=== PATIENT | male | born 1955 | race Two or more races ===

== ENCOUNTER 2019-04-03 13:01 | Observation (INO) | payer OTHER ==
--- NOTE | 2019-04-03 13:50 | ER Document Report ---
ED General - General Chief Complaint: Chest Pressure Stated Complaint: WEAKNESS Time Seen by Provider: 04/03/19 13:29 TRAVEL OUTSIDE OF THE [place] IN LAST 30 DAYS: No - HPI Notes: Patient presents with intermittent chest pressure dizziness and nausea with intermittent vomiting since Wednesday of this past week. He also has generalized weakness when these spells occur. No known medical problems he works outdoors landscaping for living. He has also been having more shortness of breath than normal with exertion. Not taking medications on a daily basis. chairman ceo was used - Related Data Allergies/Adverse Reactions: No Known Allergies Allergy (Verified 04/03/19 13:02) Past Medical History - Social History Smoking Status: Never Smoker Family History: Reviewed & Not Pertinent Review of Systems - Review of Systems Constitutional: No symptoms reported EENT: No symptoms reported Cardiovascular: See HPI Respiratory: No symptoms reported Gastrointestinal: Nausea, Vomiting Genitourinary: No symptoms reported Male Genitourinary: No symptoms reported Musculoskeletal: No symptoms reported Skin: No symptoms reported Hematologic/Lymphatic: No symptoms reported Neurological/Psychological: See HPI Physical Exam - Vital signs Vitals: Temp Pulse Resp BP Pulse Ox 98.5 F 74 13 138/83 H 98 04/03/19 13:05 04/03/19 13:05 04/03/19 13:05 04/03/19 13:05 04/03/19 13:05 - General General appearance: Appears well, Alert - HEENT Head: Normocephalic Eyes: Normal - Respiratory Respiratory status: No respiratory distress Chest status: Nontender Breath sounds: Normal - Cardiovascular Rhythm: Regular Heart sounds: Normal auscultation Murmur: No - Abdominal Inspection: Normal Distension: No distension Bowel sounds: Normal Tenderness: Nontender - Extremities General upper extremity: Normal inspection, Normal strength General lower extremity: Normal inspection, Normal strength Course - Re-evaluation Re-evalutation: 04/03/19 15:17 will be admitted for chest pain rule out - Vital Signs Vital signs: Temp Pulse Resp BP Pulse Ox 98.5 F 74 16 122/80 98 04/03/19 13:05 04/03/19 13:05 04/03/19 16:01 04/03/19 16:01 04/03/19 16:01 - Laboratory Result Diagrams: 04/03/19 13:50 04/03/19 13:50 Laboratory results interpreted by me: 04/03/19 13:50 Lymph % (Auto) 45.1 H Eos % (Auto) 11.5 H Absolute Eos (auto) 0.7 H Seg Neutrophils % 32.7 L - EKG Interpretation by Me EKG shows normal: Sinus rhythm Rate: Normal Rhythm: NSR Discharge - Discharge Clinical Impression: Chest pain Disposition: ADMITTED OBSERVATION Admitting Provider: Kelli (Hospitalist) Unit Admitted: Telemetry
--- NOTE | 2019-04-03 14:19 | RADIOLOGY REPORT (SQ) ---
EXAM DESCRIPTION: CHEST SINGLE VIEW COMPLETED DATE/TIME: 04/03/2019 2:11 pm REASON FOR STUDY: chest pain COMPARISON: None. EXAM PARAMETERS: NUMBER OF VIEWS: One view. TECHNIQUE: Single frontal radiographic view of the chest acquired. RADIATION DOSE: NA LIMITATIONS: None. FINDINGS: LUNGS AND PLEURA: No opacities, masses or pneumothorax. No pleural effusion. MEDIASTINUM AND HILAR STRUCTURES: No masses. Contour normal. HEART AND VASCULAR STRUCTURES: Cardiomegaly. BONES: No acute findings. Callused fracture deformities of the left ribs. HARDWARE: None in the chest. OTHER: No other significant finding. IMPRESSION: Cardiomegaly without acute abnormality of the lungs in AP projection. TECHNICAL DOCUMENTATION: JOB ID: [id number] [employer]- All Rights Reserved Reading location - IP/workstation name: [email or web address]
[2019-04-03 14:23] LABS: ABSOLUTE EOSINOPHILS # (AUTO) 0.7 10^3/uL (0.0-0.6); ABSOLUTE LYMPHOCYTES (AUTO) 2.8 10^3/uL (0.5-4.7); ABSOLUTE MONOCYTES (AUTO) 0.6 10^3/uL (0.1-1.4); BASOPHILS % (AUTO) 0.6 % (0-2); EOSINOPHILS % (AUTO) 11.5 % (0-6); HEMOGLOBIN 14.5 g/dL (13.5-17.0); LYMPHOCYTES % (AUTO) 45.1 % (13-45); MEAN CORPUSCULAR HEMOGLOBIN 31.1 pg (27.0-33.4); MEAN CORPUSCULAR HGB CONC 33.6 g/dL (32.0-36.0); MEAN CORPUSCULAR VOLUME 92 fl (80-97); MONOCYTES % (AUTO) 10.1 % (3-13); PLATELET COUNT 201 10^3/uL (150-450); RED BLOOD COUNT 4.65 10^6/uL (4.35-5.55); RED CELL DISTRIBUTION WIDTH 12.9 % (11.5-14.0); SEGMENTED NEUTROPHILS % (AUTO) 32.7 % (42-78); TOTAL CELLS COUNTED % (AUTO) 100 %; WHITE BLOOD COUNT 6.2 10^3/uL (4.0-10.5)
[2019-04-03 14:53] LABS: NT PRO BNP 20 pg/mL (5-900)
[2019-04-03 14:58] LABS: TROPONIN I < 0.012 ng/mL
[2019-04-03 15:05] LABS: ALBUMIN 4.2 g/dL (3.5-5.0); ALKALINE PHOSPHATASE 64 U/L (38-126); ANION GAP 9 (5-19); ASPARTATE AMINO TRANSFERASE 31 U/L (17-59); BILIRUBIN,DIRECT 0.2 mg/dL (0.0-0.4); BILIRUBIN,TOTAL 0.4 mg/dL (0.2-1.3); BLOOD UREA NITROGEN 19 mg/dL (7-20); CALCIUM 9.4 mg/dL (8.4-10.2); CARBON DIOXIDE 27 mmol/L (22-30); CHLORIDE 102 mmol/L (98-107); GLUCOSE 103 mg/dL (75-110); TOTAL PROTEIN 7.8 g/dL (6.3-8.2)
[2019-04-03] MEDS ORDERED: ACETAMINOPHEN 325 MG TABLET PO PRN (16:10)
[2019-04-03] MEDS ORDERED: TEMAZEPAM 15 MG CAPSULE PO PRN (16:10)
[2019-04-03] MEDS ORDERED: ONDANSETRON 4 MG TAB.RAPDIS PO PRN (16:10)
--- NOTE | 2019-04-03 16:10 | PDOC H&P ---
History of Present Illness Admission Date/PCP: 04/03/19 15:26 History of Present Illness: AAMIR ALDRICH is a 63 year old male originally from [facility] [employer] by profession and who does not have significant medical problem presented with chief complaint chest pain described as pressure- like localized epigastric region nonradiating and about 5 out of 10 on pain scale. Patient has associated shortness of breath on exertion and nausea vomiting and dizziness. Patient denies any fever, chills, palpitation or diaphoresis. Patient endorses nausea vomiting but no diarrhea. No urinary complaints. His blood works are unremarkable. Chest x-ray reported as cardiomegaly without other pulmonary abnormalities. Social History Smoking Status: Never Smoker Frequency of Alcohol Use: None Hx Recreational Drug Use: No - Advance Directive Resuscitation Status: Full Code Family History Parental Family History Reviewed: Yes Children Family History Reviewed: Yes Sibling(s) Family History Reviewed.: Yes Medication/Allergy Allergies/Adverse Reactions: No Known Allergies Allergy (Verified 04/03/19 13:02) Review of Systems Constitutional: ABSENT: chills, fever(s), headache(s), weight gain, weight loss Eyes: ABSENT: visual disturbances Ears: ABSENT: hearing changes Cardiovascular: PRESENT: chest pain Respiratory: PRESENT: dyspnea Gastrointestinal: PRESENT: nausea, vomiting Genitourinary: ABSENT: dysuria, hematuria Musculoskeletal: ABSENT: joint swelling Integumentary: ABSENT: rash, wounds Neurological: ABSENT: abnormal gait, abnormal speech, confusion, dizziness, focal weakness, syncope Psychiatric: ABSENT: anxiety, depression, homidical ideation, suicidal ideation Endocrine: ABSENT: cold intolerance, heat intolerance, polydipsia, polyuria Hematologic/Lymphatic: ABSENT: easy bleeding, easy bruising Physical Exam Vital Signs: Temp Pulse Resp BP Pulse Ox 98.5 F 74 16 122/80 98 04/03/19 13:05 04/03/19 13:05 04/03/19 16:01 04/03/19 16:01 04/03/19 16:01 Intake & Output 04/02/19 04/03/19 04/04/19 06:59 06:59 06:59 Weight 85.729 kg General appearance: PRESENT: no acute distress, well-developed, well-nourished Head exam: PRESENT: atraumatic, normocephalic Eye exam: PRESENT: conjunctiva pink, EOMI, PERRLA. ABSENT: scleral icterus Ear exam: PRESENT: normal external ear exam Mouth exam: PRESENT: moist, tongue midline Neck exam: ABSENT: carotid bruit, JVD, lymphadenopathy, thyromegaly Respiratory exam: PRESENT: clear to auscultation cesar. ABSENT: rales, rhonchi, wheezes Cardiovascular exam: PRESENT: RRR. ABSENT: diastolic murmur, rubs, systolic murmur Pulses: PRESENT: normal dorsalis pedis pul Vascular exam: PRESENT: normal capillary refill GI/Abdominal exam: PRESENT: normal bowel sounds, soft. ABSENT: distended, guarding, mass, organolmegaly, rebound, tenderness Rectal exam: PRESENT: deferred Extremities exam: PRESENT: full ROM. ABSENT: calf tenderness, clubbing, pedal edema Neurological exam: PRESENT: alert, awake, oriented to person, oriented to place, oriented to time, oriented to situation, CN II-XII grossly intact. ABSENT: motor sensory deficit Psychiatric exam: PRESENT: appropriate affect, normal mood. ABSENT: homicidal ideation, suicidal ideation Skin exam: PRESENT: dry, intact, warm. ABSENT: cyanosis, rash Results Laboratory Results: 04/03/19 13:50 04/03/19 13:50 04/03/19 04/03/19 13:50 13:50 WBC 6.2 RBC 4.65 Hgb 14.5 Hct 43.0 MCV 92 MCH 31.1 MCHC 33.6 RDW 12.9 Plt Count 201 Seg Neutrophils % 32.7 L Sodium 138.2 Potassium 4.0 Chloride 102 Carbon Dioxide 27 Anion Gap 9 BUN 19 Creatinine 0.92 Est GFR ( Amer) > 60 Glucose 103 Calcium 9.4 Total Bilirubin 0.4 AST 31 Alkaline Phosphatase 64 Total Protein 7.8 Albumin 4.2 Lipase 130.9 04/03/19 13:50 Troponin I < 0.012 NT-Pro-B Natriuret Pep 20 Impressions: Chest X-Ray 04/03/19 13:14 IMPRESSION: Cardiomegaly without acute abnormality of the lungs in AP projection. Assessment and Plan - Diagnosis (1) Chest pain Is this a current diagnosis for this admission?: Yes Plan: He does not have significant risk factors except his age. We will trend his cardiac enzymes. Cardiac stress test in the morning. (2) Intermittent nausea and vomiting Is this a current diagnosis for this admission?: Yes Plan: I will hydrate him cautiously.
[2019-04-03] MEDS ORDERED: MECLIZINE HCL 25 MG TABLET PO PRN (16:14)
[2019-04-03] MEDS ORDERED: RINGERS SOLUTION,LACTATED 1,000 ML IV PRN (16:14)
[2019-04-03] MEDS ORDERED: MECLIZINE HCL 25 MG TABLET PO ONE (17:00)
--- NOTE | 2019-04-03 17:05 | RADIOLOGY REPORT (SQ) ---
EXAM DESCRIPTION: CT CHEST WITHOUT COMPLETED DATE/TIME: 04/03/2019 4:47 pm REASON FOR STUDY: Shortness of breath and cardiomegaly COMPARISON: None. TECHNIQUE: CT scan performed of the chest without intravenous contrast. Images reviewed with lung, soft tissue and bone windows. Reconstructed coronal and sagittal MPR images reviewed. All images st ored on PACS. All CT scanners at this facility use dose modulation, iterative reconstruction, and/or weight based d osing when appropriate to reduce radiation dose to as low as reasonably achievable (ALARA). [facility]: Dose Right [facility]: CareDose [facility]: Dose Right [facility]: Teradose 4D [facility]: Quadriserv RADIATION DOSE: CT Rad equipment meets quality standard of care and radiation dose reduction techniq ues were employed. CTDIvol: 7.5 mGy. DLP: 267 mGy-cm. mGy. LIMITATIONS: No technical limitations. FINDINGS: LUNGS AND PLEURA: Minimal bandlike scarring along the lingula adjacent old healed left lat eral rib fractures. Lungs are otherwise well inflated and clear. No worrisome pulmonary nodules. N o pleural effusion. No pneumothorax. HILAR AND MEDIASTINAL STRUCTURES: No identified masses or abnormal nodes. No obvious aneurysm. HEART AND VASCULAR STRUCTURES: No aneurysm. No pericardial effusion. UPPER ABDOMEN: No significant findings. Limited exam. THYROID AND OTHER SOFT TISSUES: No masses. No adenopathy. BONES: Old healed left lower lateral rib fractures HARDWARE: None in the chest. OTHER: No other significant findings. IMPRESSION: NO SIGNIFICANT FINDING ON NON-CONTRASTED CHEST CT. TECHNICAL DOCUMENTATION: JOB ID: [id number] Quality ID # [id number]: Final reports with documentation of one or more dose reduction techniques (e.g., Au tomated exposure control, adjustment of the mA and/or kV according to patient size, use of iterative reconstruction technique) 2010 [employer]- All Rights Reserved Reading location - IP/workstation name: [email or web address]
[2019-04-03] MEDS: ENOXAPARIN SODIUM INJ 40 MG/0.4 ML DISP.SYRIN SUBCUT SCH (17:07)
--- NOTE | 2019-04-03 17:30 | EKG REPORT ---
SEVERITY:- BORDERLINE ECG - SINUS RHYTHM BORDERLINE LEFT AXIS DEVIATION BORDERLINE T ABNORMALITIES, INFERIOR LEADS : Confirmed by: Arben Travis MD 03-Apr-2019 17:29:29
[2019-04-03] MEDS: FAMOTIDINE 20 MG TABLET PO SCH (22:35)
[2019-04-04] MEDS: ENOXAPARIN SODIUM INJ 40 MG/0.4 ML DISP.SYRIN SUBCUT SCH (09:39)
[2019-04-04] MEDS: FAMOTIDINE 20 MG TABLET PO SCH (09:39)
[2019-04-04] MEDS ORDERED: DOCUSATE SODIUM 100 MG CAPSULE PO SCH (10:00)
--- NOTE | 2019-04-04 10:17 | PDOC DISCHARGE SUMMARY ---
General - Admit/Disc Date/PCP Admission Date/Primary Care Provider: 04/03/19 15:26 Discharge Date: 04/04/19 - Discharge Diagnosis (1) Chest pain Is this a current diagnosis for this admission?: Yes (2) Intermittent nausea and vomiting Is this a current diagnosis for this admission?: Yes - Additional Information Resuscitation Status: Full Code Home Medications: Methocarbamol [Robaxin 500 mg Tablet] 500 mg PO Q8HP PRN 04/03/19 History of Present Illness History of Present Illness: AAMIR ALDRICH is a 63 year old male originally from [facility] by profession and who does not have significant medical problem presented with chief complaint chest pain described as pressure- like localized epigastric region nonradiating and about 5 out of 10 on pain scale. Patient has associated shortness of breath on exertion and nausea vomiting and dizziness. Patient denies any fever, chills, palpitation or diaphoresis. Patient endorses nausea vomiting but no diarrhea. No urinary complaints. His blood works are unremarkable. Chest x-ray reported as cardiomegaly without other pulmonary abnormalities. Hospital Course Hospital Course: AAMIR ALDRICH is a 63 year old male originally from [facility] by profession and who does not have significant medical problem presented with chief complaint chest pain described as pressure- like localized epigastric region nonradiating and about 5 out of 10 on pain scale. Patient has associated shortness of breath on exertion and nausea vomiting and dizziness. Patient denies any fever, chills, palpitation or diaphoresis. Patient endorses nausea vomiting but no diarrhea. No urinary complaints. His blood works are unremarkable. Chest x-ray reported as cardiomegaly without other pulmonary abnormalities. 04/04/2019: Patient has chest pain-free overnight. This morning taking the cardiology need for nuclear cardiac stress test and complaining of chest pressure so the procedure is abandoned. When I seen patient is resting in bed comfortably. And no chest pain. 3 sets of cardiac enzymes are negative and he does not have any EKG changes. I discussed with patient's daughter that the stress test and echo, be done as outpatient and will set up appointment with Dr. Frazier. Physical Exam Vital Signs: Temp Pulse Resp BP Pulse Ox 97.8 F 58 L 18 127/73 H 99 04/04/19 07:55 04/04/19 07:55 04/04/19 07:55 04/04/19 07:55 04/04/19 07:55 Intake & Output 04/03/19 04/04/19 04/05/19 06:59 06:59 06:59 Intake Total 1240 Balance 1240 Weight 85.3 kg General appearance: PRESENT: no acute distress, well-developed, well-nourished Head exam: PRESENT: atraumatic, normocephalic Eye exam: PRESENT: conjunctiva pink, EOMI, PERRLA. ABSENT: scleral icterus Ear exam: PRESENT: normal external ear exam Mouth exam: PRESENT: moist, tongue midline Neck exam: ABSENT: carotid bruit, JVD, lymphadenopathy, thyromegaly Respiratory exam: PRESENT: clear to auscultation cesar. ABSENT: rales, rhonchi, wheezes Cardiovascular exam: PRESENT: RRR. ABSENT: diastolic murmur, rubs, systolic murmur Pulses: PRESENT: normal dorsalis pedis pul Vascular exam: PRESENT: normal capillary refill GI/Abdominal exam: PRESENT: normal bowel sounds, soft. ABSENT: distended, guarding, mass, organolmegaly, rebound, tenderness Rectal exam: PRESENT: deferred Extremities exam: PRESENT: full ROM. ABSENT: calf tenderness, clubbing, pedal edema Neurological exam: PRESENT: alert, awake, oriented to person, oriented to place, oriented to time, oriented to situation, CN II-XII grossly intact. ABSENT: motor sensory deficit Psychiatric exam: PRESENT: appropriate affect, normal mood. ABSENT: homicidal ideation, suicidal ideation Skin exam: PRESENT: dry, intact, warm. ABSENT: cyanosis, rash Results Laboratory Results: 04/03/19 13:50 04/03/19 13:50 04/03/19 04/03/19 13:50 13:50 WBC 6.2 RBC 4.65 Hgb 14.5 Hct 43.0 MCV 92 MCH 31.1 MCHC 33.6 RDW 12.9 Plt Count 201 Seg Neutrophils % 32.7 L Sodium 138.2 Potassium 4.0 Chloride 102 Carbon Dioxide 27 Anion Gap 9 BUN 19 Creatinine 0.92 Est GFR ( Amer) > 60 Glucose 103 Calcium 9.4 Total Bilirubin 0.4 AST 31 Alkaline Phosphatase 64 Total Protein 7.8 Albumin 4.2 Lipase 130.9 04/03/19 04/03/19 04/03/19 13:50 17:10 22:00 Troponin I < 0.012 < 0.012 < 0.012 NT-Pro-B Natriuret Pep 20 04/04/19 04:59 Troponin I < 0.012 NT-Pro-B Natriuret Pep Impressions: Chest CT 04/03/19 00:00 IMPRESSION: NO SIGNIFICANT FINDING ON NON-CONTRASTED CHEST CT. Chest X-Ray 04/03/19 13:14 IMPRESSION: Cardiomegaly without acute abnormality of the lungs in AP projection. Qualifiers - * PATIENT BEING DISCHARGED WITH ANY OF THE FOLLOWING DIAGNOSIS: No Acute Heart Failure - Is this a Heart Failure Patient?: No LVEF < 40%?: No- if no continue to question #3
[2019-04-04 11:36] VITALS: BP 127/72
== END 2019-04-04 12:25 | disposition home or self-care (01) ==
LOC: ER 13:01 → EH 15:26 → 4S 17:30
PROVIDERS: ADMIT Internal Medicine; ATTEND Internal Medicine
DX: R07.89 Other chest pain (principal); R11.2 Nausea with vomiting, unspecified; R10.13 Epigastric pain; R06.02 Shortness of breath; R42 Dizziness and giddiness; R53.1 Weakness
CPT/HCPCS: 93005; 99285; 96374; 36415 ×2; 83690; 85025; 80053; 84484 ×2; 83880; 71045; 71250; 93010; G0378 ×3; J1650 ×2; J7120